=== PATIENT | female | born 1955 | race African-American/Black ===

== ENCOUNTER 2017-12-14 14:55 | Emergency (ER) | payer MEDICARE ==
[~2017-12-14] VITALS: Ht 160 cm; Wt 61.0 kg
[~2017-12-14 14:55] MED LIST: ASPI-1159 PO; CARV12.545 PO
[2017-12-14] MEDS ORDERED: DIPHENHYDRAMINE 12.5MG/5ML UDC PO ONE (20:15)
[2017-12-14] MEDS ORDERED: CARVEDILOL 12.5MG TABLET PO ONE (20:15)
[2017-12-14] MEDS ORDERED: OSELTAMIVIR 75MG CAPSULE PO ONE (21:30)
[2017-12-14 23:21] VITALS: BP 121/76
[2017-12-15] MEDS ORDERED: HYDROCODONE/ACETAMINOPHEN 10/325MG TABLET PO ONE
== END 2017-12-15 00:18 | disposition home or self-care (01) ==
LOC: ER 16:05
DX: J10.1 Influenza due to other identified influenza virus with other respiratory manifestations (principal); I11.0 Hypertensive heart disease with heart failure; I50.9 Heart failure, unspecified; R07.89 Other chest pain; Z95.0 Presence of cardiac pacemaker; Z79.82 Long term (current) use of aspirin
CPT/HCPCS: 71045; 87804; 93005; 99285; Q0163